=== PATIENT | female | born 1945 | race Caucasian/White ===

== ENCOUNTER 2018-07-11 08:14 | Emergency (ER) | payer OTHER ==
[~2018-07-11] VITALS: Ht 167.6 cm; Wt 72.1 kg
[~2018-07-11 08:14] MED LIST: LEVOXYL25 MCG
[2018-07-11] MEDS ORDERED: LEVOXYL150 MCG (08:42)
== END 2018-07-11 14:55 | disposition home or self-care (01) ==
LOC: ER 08:14
DX: R42 Dizziness and giddiness (principal)

== ENCOUNTER → 2019-02-12 | Emergency (ER) | payer OTHER ==
[~2019-02-12] VITALS: Ht 165.1 cm; Wt 72.1 kg
[~2019-02-12] MED LIST changes: +LEVOXYL150 MCG
== END | disposition left against medical advice (07) ==
LOC: ER 12:34
DX: Z53.20 Procedure and treatment not carried out because of patient's decision for unspecified reasons (principal)

== ENCOUNTER → 2019-02-13 | Emergency (ER) | payer OTHER | END | disposition left against medical advice (07) | LOC: ER 08:26 | DX: Z53.20 Procedure and treatment not carried out because of patient's decision for unspecified reasons (principal) ==

== ENCOUNTER → 2019-02-25 | Outpatient (CLI) | payer OTHER | END | disposition home or self-care (01) | LOC: RAD 501 14:31 | DX: M17.11 Unilateral primary osteoarthritis, right knee (principal); M70.21 Olecranon bursitis, right elbow ==

== ENCOUNTER → 2019-08-11 | Emergency (ER) | payer OTHER ==
[~2019-08-11] VITALS: Ht 167.6 cm; Wt 71.7 kg
== END | disposition left against medical advice (07) ==
LOC: ER 06:40
DX: Z53.20 Procedure and treatment not carried out because of patient's decision for unspecified reasons (principal)

== ENCOUNTER 2022-04-17 02:00 | Outpatient (CLI) | payer OTHER | END 2022-04-17 02:30 | disposition home or self-care (01) | LOC: PPH VACUNA 02:00 | PROVIDERS: ATTEND Emergency Medicine Pediatric Emergency Medicine | DX: Z23 Encounter for immunization (principal) ==

== ENCOUNTER 2023-12-10 12:02 | Emergency (ER) | payer OTHER ==
[~2023-12-10] VITALS: Ht 165.1 cm; Wt 55.8 kg
[2023-12-10 14:51] LABS: HEMATOCRIT 37.4 % (36.0-45.00); HEMOGLOBIN 12.8 g/dL (12.0-15.00); MEAN CELL VOLUME 88.4 fL (80.00-100.00); MEAN CORPUSCULAR HEMOGLOBIN 30.2 pg (27.00-32.0); MEAN CORPUSCULAR HGB CONC 34.2 g/dl (32.0-36.0); PLATELET COUNT 290 K/uL (150-450); RED BLOOD COUNT 4.23 M/uL (4.00-6.00); RED CELL DISTRIBUTION WIDTH 13.1 % (11.5-14.5)
[2023-12-10 15:11] LABS: CALCIUM 8.6 mg/dL (8.5-10.1); CREATININE SERUM 0.67 mg/dL (0.55-1.02); GFR 84.69; POTASSIUM 3.65 mEq/L (3.5-5.1)
[2023-12-10 15:53] LABS: ABG PH 7.462 (7.35-7.45); BASE EXCESS 1.1 mmol/l; SaO2 96.5 %
[2023-12-10 15:54] LABS: BICARBONATE 24.4 mmol/l (23-25); Tco2 25.5 mmol/l; allen test SATISFACTORY; o2 21 %; puncture site RADIAL RIGHT
== END 2023-12-10 13:39 | disposition home or self-care (01) ==
LOC: ER 12:03
PROVIDERS: General Practice
DX: J06.9 Acute upper respiratory infection, unspecified (principal); Z88.8 Allergy status to other drugs, medicaments and biological substances; Z20.822 Contact with and (suspected) exposure to COVID-19

== ENCOUNTER → 2023-12-13 | Emergency (ER) | payer OTHER ==
[~2023-12-13] VITALS: Ht 162.6 cm; Wt 56.7 kg
== END | disposition left against medical advice (07) ==
LOC: ER 10:53
DX: Z53.21 Procedure and treatment not carried out due to patient leaving prior to being seen by health care provider (principal)

== ENCOUNTER 2024-06-21 12:36 | Emergency (ER) | payer OTHER ==
[~2024-06-21] VITALS: Ht 165.1 cm; Wt 55.3 kg
[2024-06-21] MEDS ORDERED: METOCLOPRAMIDE HCL 5 MG/ML VIAL IM ONE (13:30)
[2024-06-21] MEDS ORDERED: METOCLOPRAMIDE HCL 5 MG/ML VIAL ONE (14:03)
[2024-06-21 15:25] LABS: HEMATOCRIT 42.5 % (36.0-45.00); MEAN CELL VOLUME 87.7 fL (80.00-100.00); MEAN CORPUSCULAR HGB CONC 35.3 g/dl (32.0-36.0); PLATELET COUNT 135 K/uL (150-450); RED BLOOD COUNT 4.84 M/uL (4.00-6.00)
[2024-06-21 15:45] LABS: ALBUMIN 3.7 gm/dL (3.4-5.0); BILIRUBIN TOTAL 0.65 mg/dL (0.3-1.2); CALCIUM 9.4 mg/dL (8.5-10.1); CREATININE SERUM 0.61 mg/dL (0.55-1.02); GFR 94.13; GLOBULINA 4.2 G/DL (2.4-3.5); POTASSIUM 3.86 mEq/L (3.5-5.1); TOTAL PROTEIN 7.9 gm/dL (6.4-8.2)
== END 2024-06-21 19:05 | disposition designated cancer center or children's hospital (05) ==
LOC: ER 12:36
PROVIDERS: General Practice
DX: S06.5XAA Traumatic subdural hemorrhage with loss of consciousness status unknown, initial encounter (principal); Z91.040 Latex allergy status; Z91.041 Radiographic dye allergy status; Z20.822 Contact with and (suspected) exposure to COVID-19; S01.82XA Laceration with foreign body of other part of head, initial encounter; W18.39XA Other fall on same level, initial encounter; Y93.89 Activity, other specified; Y92.89 Other specified places as the place of occurrence of the external cause
CPT/HCPCS: 36415; 70450; 71046; 72125; 73521; 99284; J2765

== ENCOUNTER 2024-07-08 13:41 | Outpatient (CLI) | payer OTHER | END 2024-07-08 14:05 | disposition home or self-care (01) | LOC: TOM 13:41 | DX: I62.00 Nontraumatic subdural hemorrhage, unspecified (principal); I62.01 Nontraumatic acute subdural hemorrhage ==

== ENCOUNTER → 2024-07-08 | Outpatient (CLI) | payer OTHER | END | disposition home or self-care (01) | LOC: NUCLEAR 11:00 | PROVIDERS: ATTEND Internal Medicine | DX: R00.1 Bradycardia, unspecified (principal) ==

== ENCOUNTER 2025-02-01 14:28 | Emergency (ER) | payer OTHER ==
[~2025-02-01] VITALS: Ht 165.1 cm; Wt 58.1 kg
[2025-02-01] MEDS ORDERED: KETOROLAC TROMETHAMINE 15 MG VIAL IM STA (17:03)
[2025-02-01] MEDS ORDERED: ORPHENADRINE CITRATE 30 MG/ML AMPUL IM STA (17:03)
[2025-02-01] MEDS ORDERED: CELEBREX200MG PO (18:08)
[2025-02-01] MEDS ORDERED: METAXALONE800 MG PO (18:08)
== END 2025-02-01 18:11 | disposition home or self-care (01) ==
LOC: ER 14:31
DX: M54.30 Sciatica, unspecified side (principal); E03.8 Other specified hypothyroidism; Z91.041 Radiographic dye allergy status
CPT/HCPCS: 96372; 99282; J1885; J2360

== ENCOUNTER → 2025-06-04 | Emergency (ER) | payer OTHER ==
[~2025-06-04] VITALS: Ht 167.6 cm; Wt 61.2 kg
[~2025-06-04] MED LIST changes: +CELEBREX200MG PO; +KETOROLAC TROMETHAMINE 30 MG VIAL IM ONE; +METAXALONE800 MG PO
== END | disposition home or self-care (01) ==
LOC: ER 10:14
DX: M25.551 Pain in right hip (principal); E03.8 Other specified hypothyroidism; Z91.041 Radiographic dye allergy status